=== PATIENT | male | born 1950 | race Caucasian/White ===

== ENCOUNTER 2018-05-30 21:55 | Emergency (ER) | payer MEDICARE, BC | END 2018-05-30 23:35 | disposition home or self-care (01) | LOC: M ED 21:55 | DX: G70.00 Myasthenia gravis without (acute) exacerbation (principal); H53.9 Unspecified visual disturbance | CPT/HCPCS: 99282 ==

== ENCOUNTER → 2018-06-25 | Outpatient (CLI) | payer MEDICARE ==
[2018-06-25 10:06] LABS: CREATININE FOR GFR 1.14 MG/DL (0.70-1.30); GLOMERULAR FILTRATION RATE > 60.0 (>49)
[2018-06-25 10:06] LABS: BLOOD UREA NITROGEN 23 MG/DL (7-18)
[2018-07-03 10:13] LABS: ACETYLCHOLINE RCPTOR BINDING A 6.21 nmol/L (0.00-0.24)
[2018-07-03 10:13] LABS: ACETYLCHOLINE RCPTOR BLOCK AB 48 % (0-25); ACETYLCHOLINE RCPTOR MODULATIN 30 % (0-20); STRIATIONAL ANTIBODIES Negative (Neg:<1:40)
== END ==
LOC: M LAB 08:40
DX: G70.00 Myasthenia gravis without (acute) exacerbation (principal); H53.2 Diplopia
CPT/HCPCS: 82565

== ENCOUNTER → 2018-07-01 | Outpatient (CLI) | payer MEDICARE ==
[~2018-07-01] MED LIST: GASTROGRAFIN SOLUTION 30ML (Q9963) As Ordered; ISOVUE-370 76% 100ML VIAL (Q9967) As Ordered
== END ==
LOC: M RAD 12:47
DX: R91.8 Other nonspecific abnormal finding of lung field (principal); N20.0 Calculus of kidney; G70.01 Myasthenia gravis with (acute) exacerbation; H53.2 Diplopia; H02.423 Myogenic ptosis of bilateral eyelids; Z90.410 Acquired total absence of pancreas; Z90.81 Acquired absence of spleen
CPT/HCPCS: Q9963

== ENCOUNTER → 2018-09-25 | Outpatient (CLI) | payer MEDICARE ==
[~2018-09-25] MED LIST changes: +AMIO200T; +CENTCHW4 PO; +COQ1200C2 PO; +CRES5TAB PO; +ECOT81TA5 PO; -GASTROGRAFIN SOLUTION 30ML (Q9963) As Ordered; -ISOVUE-370 76% 100ML VIAL (Q9967) As Ordered; +META0.52 PO; +PRED25TA PO; +PYRI60TA2; +REST0.057; +VITA2000 PO; +VITA500C24 PO
[2018-09-25 07:42] LABS: BASO % 0.4 % (0.0-1.0); EOS % 0.4 % (0.0-3.0); HEMOGLOBIN 14.2 g/dl (13.5-17.5); LYMPH # 2.7 10^3/uL (1.5-4.5); LYMPH % 32.1 % (24.0-44.0); MEAN CORPUSCULAR HEMOGLOBIN 32.9 pg (27.0-33.0); MEAN CORPUSCULAR HGB CONC 33.8 g/dl (32.0-36.5); MEAN CORPUSCULAR VOLUME 97.2 fl (80.0-96.0); MONO # 0.8 10^3/uL (0.0-0.8); MONO % 9.5 % (0.0-5.0); NEUTROPHILS # 4.8 10^3/uL (1.8-7.7); NEUTROPHILS % 57.2 % (36.0-66.0); PLATELET COUNT, AUTOMATED 285 10^3/uL (150-450); RED BLOOD COUNT 4.32 10^6/uL (4.30-6.10); WHITE BLOOD COUNT 8.4 10^3/uL (4.0-10.0)
[2018-09-25 08:01] LABS: ALBUMIN 3.4 GM/DL (3.2-5.2); ALT/SGPT 30 U/L (12-78); BILIRUBIN,TOTAL 0.3 MG/DL (0.2-1.0); BLOOD UREA NITROGEN 22 MG/DL (7-18); CALCIUM LEVEL 8.7 MG/DL (8.8-10.2); CARBON DIOXIDE LEVEL 27 MEQ/L (21-32); CHLORIDE LEVEL 106 MEQ/L (98-107); CREATININE FOR GFR 1.01 MG/DL (0.70-1.30); GLOMERULAR FILTRATION RATE > 60.0 (>49); GLUCOSE, FASTING 89 MG/DL (70-100); SODIUM LEVEL 142 MEQ/L (136-145); TOTAL PROTEIN 6.2 GM/DL (6.4-8.2)
[2018-09-25 10:08] LABS: TOTAL 25(OH) VITAMIN D 31.2 NG/ML (30.0-100.0)
== END ==
LOC: M LAB 07:09
PROVIDERS: ATTEND Psychiatry & Neurology Neurology
DX: H53.2 Diplopia (principal); G70.00 Myasthenia gravis without (acute) exacerbation

== ENCOUNTER → 2019-04-28 | Outpatient (REF) | payer MEDICARE ==
[2019-04-28 15:43] LABS: BASO % 0.1 % (0.0-1.0); HEMATOCRIT 42.7 % (42.0-52.0); HEMOGLOBIN 14.1 g/dl (13.5-17.5); LYMPH # 1.1 10^3/uL (1.5-5.0); LYMPH % 13.5 % (24.0-44.0); MEAN CORPUSCULAR HEMOGLOBIN 32.8 pg (27.0-33.0); MEAN CORPUSCULAR VOLUME 99.3 fl (80.0-96.0); MONO # 0.4 10^3/uL (0.0-0.8); MONO % 4.4 % (0.0-5.0); NEUTROPHILS # 6.8 10^3/uL (1.5-8.5); NEUTROPHILS % 81.5 % (36.0-66.0); PLATELET COUNT, AUTOMATED 295 10^3/uL (150-450); WHITE BLOOD COUNT 8.4 10^3/uL (4.0-10.0)
[2019-04-28 15:51] LABS: ALBUMIN 3.8 GM/DL (3.2-5.2); ALT/SGPT 35 U/L (12-78); BILIRUBIN,TOTAL 0.8 MG/DL (0.2-1.0); BLOOD UREA NITROGEN 23 MG/DL (7-18); CALCIUM LEVEL 9.1 MG/DL (8.8-10.2); CARBON DIOXIDE LEVEL 26 MEQ/L (21-32); CHLORIDE LEVEL 106 MEQ/L (98-107); CREATININE FOR GFR 1.08 MG/DL (0.70-1.30); GLOMERULAR FILTRATION RATE > 60.0 (>49); GLUCOSE, FASTING 98 MG/DL (70-100); POTASSIUM SERUM 4.4 MEQ/L (3.5-5.1); SODIUM LEVEL 138 MEQ/L (136-145); TOTAL PROTEIN 6.9 GM/DL (6.4-8.2)
== END ==
LOC: M LABNEURO 11:54
PROVIDERS: ATTEND Psychiatry & Neurology Neurology
DX: G70.00 Myasthenia gravis without (acute) exacerbation (principal)

== ENCOUNTER → 2019-08-05 | Outpatient (REF) | payer MEDICARE ==
[2019-08-05 18:12] LABS: INFLUENZA A AMPLIFICATION NEGATIVE (NEGATIVE); INFLUENZA B AMPLIFICATION NEGATIVE (NEGATIVE)
== END ==
LOC: M LAB REF 16:38
PROVIDERS: ATTEND Registered Nurse
DX: R50.9 Fever, unspecified (principal)

== ENCOUNTER → 2019-08-16 | Outpatient (CLI) | payer MEDICARE ==
[2019-08-16 10:21] LABS: BASO % 0.6 % (0.0-1.0); EOS # 0.1 10^3/uL (0.0-0.5); EOS % 1.4 % (0.0-3.0); HEMATOCRIT 41.5 % (42.0-52.0); HEMOGLOBIN 13.4 g/dl (13.5-17.5); LYMPH # 2.2 10^3/uL (1.5-5.0); LYMPH % 34.2 % (24.0-44.0); MEAN CORPUSCULAR HEMOGLOBIN 32.8 pg (27.0-33.0); MEAN CORPUSCULAR HGB CONC 32.3 g/dl (32.0-36.5); MEAN CORPUSCULAR VOLUME 101.5 fl (80.0-96.0); MONO # 0.7 10^3/uL (0.0-0.8); MONO % 11.3 % (0.0-5.0); NEUTROPHILS # 3.3 10^3/uL (1.5-8.5); NEUTROPHILS % 52.2 % (36.0-66.0); PLATELET COUNT, AUTOMATED 378 10^3/uL (150-450); RED BLOOD COUNT 4.09 10^6/uL (4.30-6.10); WHITE BLOOD COUNT 6.3 10^3/uL (4.0-10.0)
[2019-08-16 10:52] LABS: ALBUMIN 3.4 GM/DL (3.2-5.2); ALT/SGPT 31 U/L (12-78); BILIRUBIN,TOTAL 0.3 MG/DL (0.2-1.0); BLOOD UREA NITROGEN 21 MG/DL (7-18); CARBON DIOXIDE LEVEL 29 MEQ/L (21-32); CHLORIDE LEVEL 109 MEQ/L (98-107); CREATININE FOR GFR 1.12 MG/DL (0.70-1.30); GLOMERULAR FILTRATION RATE > 60.0 (>49); GLUCOSE, FASTING 91 MG/DL (70-100); POTASSIUM SERUM 4.4 MEQ/L (3.5-5.1); SODIUM LEVEL 142 MEQ/L (136-145); TOTAL PROTEIN 6.6 GM/DL (6.4-8.2)
== END ==
LOC: M LAB 09:12
PROVIDERS: ATTEND Psychiatry & Neurology Neurology
DX: G70.00 Myasthenia gravis without (acute) exacerbation (principal)

== ENCOUNTER → 2019-08-20 | Outpatient (REF) | payer MEDICARE ==
[2019-08-20 14:28] LABS: PERCENT SATURATION 47.6 % (19.7-50.0)
[2019-08-20 14:35] LABS: FOLATE 20.4 NG/ML
== END ==
LOC: M LABNEURO 08:16
PROVIDERS: ATTEND Psychiatry & Neurology Neurology
DX: D64.9 Anemia, unspecified (principal)

== ENCOUNTER → 2019-11-24 | Outpatient (CLI) | payer MEDICARE ==
[2019-11-24 06:44] LABS: BASO % 0.3 % (0.0-1.0); EOS % 0.3 % (0.0-3.0); HEMATOCRIT 41.9 % (42.0-52.0); HEMOGLOBIN 13.8 g/dl (13.5-17.5); LYMPH # 3.2 10^3/uL (1.5-5.0); MEAN CORPUSCULAR HEMOGLOBIN 32.9 pg (27.0-33.0); MEAN CORPUSCULAR HGB CONC 32.9 g/dl (32.0-36.5); MEAN CORPUSCULAR VOLUME 99.8 fl (80.0-96.0); MONO # 0.7 10^3/uL (0.0-0.8); MONO % 7.9 % (0.0-5.0); NEUTROPHILS # 5.1 10^3/uL (1.5-8.5); NEUTROPHILS % 56.1 % (36.0-66.0); PLATELET COUNT, AUTOMATED 294 10^3/uL (150-450); WHITE BLOOD COUNT 9.1 10^3/uL (4.0-10.0)
[2019-11-24 07:15] LABS: ALBUMIN 3.5 GM/DL (3.2-5.2); ALT/SGPT 32 U/L (12-78); BILIRUBIN,TOTAL 0.4 MG/DL (0.2-1.0); BLOOD UREA NITROGEN 26 MG/DL (7-18); CALCIUM LEVEL 9.2 MG/DL (8.8-10.2); CARBON DIOXIDE LEVEL 27 MEQ/L (21-32); CHLORIDE LEVEL 106 MEQ/L (98-107); CREATININE FOR GFR 1.03 MG/DL (0.70-1.30); GLOMERULAR FILTRATION RATE > 60.0 (>49); GLUCOSE, FASTING 93 MG/DL (70-100); POTASSIUM SERUM 4.1 MEQ/L (3.5-5.1); SODIUM LEVEL 139 MEQ/L (136-145); TOTAL PROTEIN 6.4 GM/DL (6.4-8.2)
== END ==
LOC: M LAB 05:39
PROVIDERS: ATTEND Psychiatry & Neurology Neurology
DX: H53.2 Diplopia (principal); G70.00 Myasthenia gravis without (acute) exacerbation

== ENCOUNTER 2019-12-08 07:32 | Outpatient (CLI) | payer MEDICARE ==
[2019-12-08] VITALS (8 sets, daily range): BP systolic 115–154; BP diastolic 60–85
[2019-12-08] MEDS ORDERED: IMMUNE GLOBULIN IV ONE (07:45)
[2019-12-08] MEDS ORDERED: diphenhydrAMINE 50MG/ML VIAL (J1200) IV ONE (08:00)
[2019-12-08] MEDS ORDERED: ACETAMINOPHEN TAB 650MG DOSE (2X325MG) PO ONE (08:00)
[2019-12-09] MEDS ORDERED: atovaquone PO (07:23)
[2019-12-09] MEDS ORDERED: FOLI1TAB11 PO (07:23)
[2019-12-09] MEDS ORDERED: METH2.5T48 PO (07:23)
[2019-12-09] MEDS ORDERED: SILD20TA50 PO (07:23)
[2019-12-09] MEDS ORDERED: FLON27.5 NARES (07:26)
== END 2019-12-08 13:10 | disposition home or self-care (01) ==
LOC: M INFU 07:32
PROVIDERS: ATTEND Psychiatry & Neurology Neurology
DX: G70.00 Myasthenia gravis without (acute) exacerbation (principal); Z88.2 Allergy status to sulfonamides; Z88.8 Allergy status to other drugs, medicaments and biological substances
CPT/HCPCS: 96365; 96366; 96375; J1200; J1459

== ENCOUNTER 2019-12-10 07:20 | Outpatient (CLI) | payer MEDICARE ==
[~2019-12-10] VITALS: Ht 180.3 cm; Wt 97.0 kg
[~2019-12-10 07:20] MED LIST changes: +ACETAMINOPHEN TAB 650MG DOSE (2X325MG) PO ONE; +FLON27.5 NARES; +FOLI1TAB11 PO; +IMMUNE GLOBULIN 10% 20 GM in IV 1 EA IV ONE; +IMMUNE GLOBULIN 10% 40 GM in IV 1 EA IV ONE; +METH2.5T48 PO; +SILD20TA50 PO; +atovaquone PO; +diphenhydrAMINE 50MG/ML VIAL (J1200) IV ONE
[2019-12-10 07:25] VITALS: BP 157/78
[2019-12-10 08:18] VITALS: BP 142/69
[2019-12-10 08:48] VITALS: BP 148/66
[2019-12-10 09:20] VITALS: BP 148/66
[2019-12-10 10:20] VITALS: BP 139/79
[2019-12-10 11:47] VITALS: BP 130/71
== END 2019-12-10 11:45 | disposition home or self-care (01) ==
LOC: M INFU 07:20
PROVIDERS: ATTEND Psychiatry & Neurology Neurology
DX: G70.00 Myasthenia gravis without (acute) exacerbation (principal); Z88.2 Allergy status to sulfonamides; Z88.8 Allergy status to other drugs, medicaments and biological substances
CPT/HCPCS: 96365; 96366; 96375; J1200; J1459

== ENCOUNTER → 2020-01-13 | Outpatient (CLI) | payer MEDICARE ==
[~2020-01-13] MED LIST changes: -ACETAMINOPHEN TAB 650MG DOSE (2X325MG) PO ONE; -IMMUNE GLOBULIN 10% 20 GM in IV 1 EA IV ONE; -IMMUNE GLOBULIN 10% 40 GM in IV 1 EA IV ONE; -diphenhydrAMINE 50MG/ML VIAL (J1200) IV ONE
[2020-01-13 08:01] LABS: BASO % 0.2 % (0.0-1.0); EOS % 0.3 % (0.0-3.0); HEMATOCRIT 41.3 % (42.0-52.0); HEMOGLOBIN 13.4 g/dl (13.5-17.5); LYMPH # 3.1 10^3/uL (1.5-5.0); LYMPH % 34.5 % (24.0-44.0); MEAN CORPUSCULAR HGB CONC 32.4 g/dl (32.0-36.5); MEAN CORPUSCULAR VOLUME 101.7 fl (80.0-96.0); MONO # 0.7 10^3/uL (0.0-0.8); MONO % 7.9 % (0.0-5.0); NEUTROPHILS % 56.6 % (36.0-66.0); PLATELET COUNT, AUTOMATED 281 10^3/uL (150-450); RED BLOOD COUNT 4.06 10^6/uL (4.30-6.10); WHITE BLOOD COUNT 8.8 10^3/uL (4.0-10.0)
[2020-01-13 08:31] LABS: ALBUMIN 2.9 GM/DL (3.2-5.2); ALT/SGPT 47 U/L (12-78); BILIRUBIN,TOTAL 0.3 MG/DL (0.2-1.0); BLOOD UREA NITROGEN 23 MG/DL (7-18); CALCIUM LEVEL 8.8 MG/DL (8.8-10.2); CARBON DIOXIDE LEVEL 27 MEQ/L (21-32); CHLORIDE LEVEL 110 MEQ/L (98-107); CREATININE FOR GFR 1.11 MG/DL (0.70-1.30); GLOMERULAR FILTRATION RATE > 60.0 (>49); GLUCOSE, FASTING 82 MG/DL (70-100); POTASSIUM SERUM 4.1 MEQ/L (3.5-5.1); SODIUM LEVEL 142 MEQ/L (136-145)
[2020-01-21 11:07] LABS: ACETYLCHOLINE RCPTOR BLOCK AB 44 % (0-25); ACETYLCHOLINE RCPTOR MODULATIN <12 % (0-20)
== END ==
LOC: M LAB 07:18
PROVIDERS: ATTEND Psychiatry & Neurology Neurology
DX: H53.2 Diplopia (principal); G70.00 Myasthenia gravis without (acute) exacerbation

== ENCOUNTER 2020-01-17 07:27 | Outpatient (CLI) | payer MEDICARE ==
[~2020-01-17] VITALS: Ht 180.3 cm; Wt 97.0 kg
[~2020-01-17 07:27] MED LIST changes: +ACETAMINOPHEN TAB 650MG DOSE (2X325MG) PO ONE; +IMMUNE GLOBULIN 10% 20 GM in IV 1 EA IV ONE; +IMMUNE GLOBULIN 10% 40 GM in IV 1 EA IV ONE; +diphenhydrAMINE 50MG/ML VIAL (J1200) IV ONE
[2020-01-17 07:30] VITALS: BP 134/73
[2020-01-17 08:45] VITALS: BP 139/62
[2020-01-17 09:15] VITALS: BP_SYST 136; BP_SYST 138; BP_DIAS 68; BP_DIAS 75
[2020-01-17 09:45] VITALS: BP 143/77
[2020-01-17 10:45] VITALS: BP 154/75
[2020-01-17 12:10] VITALS: BP 147/74
== END 2020-01-17 12:10 | disposition home or self-care (01) ==
LOC: M INFU 07:27
PROVIDERS: ATTEND Psychiatry & Neurology Neurology
DX: G70.00 Myasthenia gravis without (acute) exacerbation (principal)
CPT/HCPCS: 96365; 96366; 96375; J1200; J1459

== ENCOUNTER 2020-01-18 07:16 | Outpatient (CLI) | payer MEDICARE ==
[~2020-01-18] VITALS: Ht 180.3 cm; Wt 97.0 kg
[2020-01-18] VITALS (7 sets, daily range): BP systolic 137–157; BP diastolic 70–79
[~2020-01-18 07:16] MED LIST changes: -ACETAMINOPHEN TAB 650MG DOSE (2X325MG) PO ONE; -IMMUNE GLOBULIN 10% 20 GM in IV 1 EA IV ONE; -IMMUNE GLOBULIN 10% 40 GM in IV 1 EA IV ONE; -diphenhydrAMINE 50MG/ML VIAL (J1200) IV ONE
[2020-01-18] MEDS ORDERED: ACETAMINOPHEN TAB 650MG DOSE (2X325MG) PO ONE (07:30)
[2020-01-18] MEDS ORDERED: diphenhydrAMINE 50MG/ML VIAL (J1200) IV ONE (07:30)
[2020-01-18] MEDS ORDERED: IMMUNE GLOBULIN 10% 40 GM in IV 1 EA IV ONE (08:30)
[2020-01-18] MEDS ORDERED: IMMUNE GLOBULIN 10% 20 GM in IV 1 EA IV ONE (08:30)
== END 2020-01-18 12:00 | disposition home or self-care (01) ==
LOC: M INFU 07:16
PROVIDERS: ATTEND Psychiatry & Neurology Neurology
DX: G70.00 Myasthenia gravis without (acute) exacerbation (principal)
CPT/HCPCS: 96365; 96366; 96375; J1200; J1459

== ENCOUNTER 2020-01-19 07:22 | Outpatient (CLI) | payer MEDICARE ==
[~2020-01-19] VITALS: Ht 175.3 cm; Wt 88.0 kg
[~2020-01-19 07:22] MED LIST changes: -AMIO200T; +AMIO200T3
[2020-01-19] MEDS ORDERED: ACETAMINOPHEN TAB 650MG DOSE (2X325MG) PO ONE (07:30)
[2020-01-19] MEDS ORDERED: IMMUNE GLOBULIN 10% 20 GM in IV 1 EA IV ONE (07:30)
[2020-01-19] MEDS ORDERED: diphenhydrAMINE 50MG/ML VIAL (J1200) IV ONE (07:30)
[2020-01-19] MEDS ORDERED: IMMUNE GLOBULIN 10% 40 GM in IV 1 EA IV ONE (07:30)
[2020-01-19 07:32] VITALS: BP 156/74
[2020-01-19 08:35] VITALS: BP 154/81
[2020-01-19 09:05] VITALS: BP 152/75
[2020-01-19 09:35] VITALS: BP 154/78
[2020-01-19 11:24] VITALS: BP 148/82
[2020-01-19 12:20] VITALS: BP 160/70
== END 2020-01-19 12:20 | disposition home or self-care (01) ==
LOC: M INFU 07:22
PROVIDERS: ATTEND Psychiatry & Neurology Neurology
DX: G70.00 Myasthenia gravis without (acute) exacerbation (principal); Z88.1 Allergy status to other antibiotic agents; Z88.2 Allergy status to sulfonamides
CPT/HCPCS: 96365; 96366; 96375; J1200; J1459

== ENCOUNTER 2020-02-14 07:19 | Outpatient (CLI) | payer MEDICARE ==
[2020-02-14] MEDS ORDERED: ACETAMINOPHEN TAB 650MG DOSE (2X325MG) ONE (07:20)
[2020-02-14] MEDS ORDERED: diphenhydrAMINE 50MG/ML VIAL (J1200) ONE (07:20)
[2020-02-14] MEDS ORDERED: IMMUNE GLOBULIN 10% 40GM 400ML BOTTLE (PRIVIGEN) (J1459 PER 500MG) ONE (07:43)
[2020-02-14] MEDS ORDERED: IMMUNE GLOBULIN 10% 20GM 200ML BOTTLE (PRIVIGEN) (J1459 PER 500MG) ONE (07:43)
[2020-02-14] MEDS ORDERED: diphenhydrAMINE 50MG/ML VIAL (J1200) As Ordered ONE (07:53)
[2020-02-14] MEDS ORDERED: ACETAMINOPHEN TAB 650MG DOSE (2X325MG) As Ordered ONE (07:53)
== END 2020-02-14 12:00 | disposition home or self-care (01) ==
LOC: M INFU 07:19
PROVIDERS: ATTEND Psychiatry & Neurology Neurology
DX: G70.00 Myasthenia gravis without (acute) exacerbation (principal)
CPT/HCPCS: 96365; 96366; 96375; J1200; J1459

== ENCOUNTER 2020-02-15 07:19 | Outpatient (CLI) | payer MEDICARE ==
[2020-02-15] MEDS ORDERED: IMMUNE GLOBULIN 10% 20GM 200ML BOTTLE (PRIVIGEN) (J1459 PER 500MG) ONE (07:48)
[2020-02-15] MEDS ORDERED: ACETAMINOPHEN TAB 650MG DOSE (2X325MG) ONE (07:48)
[2020-02-15] MEDS ORDERED: IMMUNE GLOBULIN 10% 40GM 400ML BOTTLE (PRIVIGEN) (J1459 PER 500MG) ONE (07:48)
[2020-02-15] MEDS ORDERED: diphenhydrAMINE 50MG/ML VIAL (J1200) ONE (07:48)
[2020-02-15] MEDS ORDERED: IMMUNE GLOBULIN 10% 20GM 200ML BOTTLE (PRIVIGEN) (J1459 PER 500MG) As Ordered ONE (07:48)
[2020-02-15] MEDS ORDERED: IMMUNE GLOBULIN 10% 40GM 400ML BOTTLE (PRIVIGEN) (J1459 PER 500MG) As Ordered ONE (07:48)
[2020-02-15] MEDS ORDERED: ACETAMINOPHEN TAB 650MG DOSE (2X325MG) As Ordered ONE (07:49)
[2020-02-15] MEDS ORDERED: diphenhydrAMINE 50MG/ML VIAL (J1200) As Ordered ONE (07:49)
== END 2020-02-15 12:00 | disposition home or self-care (01) ==
LOC: M INFU 07:19
PROVIDERS: ATTEND Psychiatry & Neurology Neurology
DX: G70.00 Myasthenia gravis without (acute) exacerbation (principal)
CPT/HCPCS: 96365; 96366; 96375; J1200; J1459

== ENCOUNTER 2020-02-16 07:45 | Outpatient (CLI) | payer MEDICARE ==
[~2020-02-16 07:45] MED LIST changes: +AMIO200T; -AMIO200T3
[2020-02-16] MEDS ORDERED: IMMUNE GLOBULIN 10% 20GM 200ML BOTTLE (PRIVIGEN) (J1459 PER 500MG) As Ordered ONE (08:01)
[2020-02-16] MEDS ORDERED: IMMUNE GLOBULIN 10% 40GM 400ML BOTTLE (PRIVIGEN) (J1459 PER 500MG) As Ordered ONE (08:01)
[2020-02-16] MEDS ORDERED: diphenhydrAMINE 50MG/ML VIAL (J1200) As Ordered ONE (08:04)
[2020-02-16] MEDS ORDERED: ACETAMINOPHEN TAB 650MG DOSE (2X325MG) As Ordered ONE (08:05)
== END 2020-02-16 12:40 | disposition home or self-care (01) ==
LOC: M INFU 07:45
PROVIDERS: ATTEND Psychiatry & Neurology Neurology
DX: G70.00 Myasthenia gravis without (acute) exacerbation (principal)
CPT/HCPCS: 96365; 96366; J1200; J1459